=== PATIENT | female | born 1985 | race Caucasian/White ===

== ENCOUNTER → 2016-08-14 | Outpatient (CLI) | payer BC ==
[~2016-08-14] MED LIST: PRENTAB26 PO
[2016-08-14 13:49] LABS: URINE APPEARANCE CLEAR (CLEAR); URINE BILIRUBIN NEG (NEG); URINE COLOR YELLOW; URINE NITRITE NEG (NEG); URINE SPECIFIC GRAVITY 1.013 (1.000-1.030); UROBILINOGEN NEG (NEG)
[2016-08-14 13:54] LABS: MANUAL MICROSCOPIC REQUIRED? NO; REVIEW REQ? NO
== END | disposition home or self-care (01) ==
LOC: C.LABSPEC 13:22
PROVIDERS: ATTEND Obstetrics & Gynecology
DX: Z34.81 Encounter for supervision of other normal pregnancy, first trimester (principal)

== ENCOUNTER → 2016-08-22 | Outpatient (CLI) | payer BC ==
[2016-08-22 16:31] LABS: BASO % 0.2 %; BASO ABS # 0.02 K/uL (0-0.2); COMPLETE YES; EOS % 1.3 %; HEMATOCRIT 35.5 % (37-47); IG% 0.2 %; LYMPH % 30.5 %; LYMPH ABS # 2.65 K/uL (1.2-3.4); MEAN CELL VOLUME 87.9 fL (80-100); MEAN CORPUSCULAR HEMOGLOBIN 31.4 pg (25-34); MEAN CORPUSCULAR HGB CONC 35.8 g/dl (32-36); MEAN PLATELET VOLUME 9.2 fL (7.4-10.4); MONO % 7.6 %; NEUT % 60.2 %; PLATELET COUNT 232 K/uL (130-400); RED BLOOD COUNT 4.04 M/uL (4.2-5.4); WHITE BLOOD COUNT 8.68 K/uL (4.8-10.8)
[2016-08-25 15:33] LABS: CHLAMYDIA TRACH RNA*** NOT DETECTED (NOT DETECTED); GC (NEIS GONORRHOEAE)RNA** NOT DETECTED (NOT DETECTED)
== END | disposition home or self-care (01) ==
LOC: C.LAB1850 15:54
PROVIDERS: ATTEND Obstetrics & Gynecology
DX: Z34.81 Encounter for supervision of other normal pregnancy, first trimester (principal)

== ENCOUNTER → 2016-08-22 | Outpatient (CLI) | payer BC | END | disposition home or self-care (01) | LOC: C.PAPS 10:36 | PROVIDERS: ATTEND Obstetrics & Gynecology | DX: Z12.4 Encounter for screening for malignant neoplasm of cervix (principal) ==

== ENCOUNTER → 2016-10-02 | Outpatient (CLI) | payer BC ==
[2016-10-02 18:19] LABS: GTGD 50 Grams
== END | disposition home or self-care (01) ==
LOC: C.LAB1850 16:10
PROVIDERS: ATTEND Obstetrics & Gynecology
DX: Z34.82 Encounter for supervision of other normal pregnancy, second trimester (principal)

== ENCOUNTER → 2016-10-06 | Outpatient (CLI) | payer BC | END | disposition home or self-care (01) | LOC: C.LAB1850 08:25 | PROVIDERS: ATTEND Obstetrics & Gynecology | DX: O28.1 Abnormal biochemical finding on antenatal screening of mother (principal); Z3A.00 Weeks of gestation of pregnancy not specified ==

== ENCOUNTER → 2016-12-25 | Outpatient (CLI) | payer BC ==
[2016-12-25 11:08] LABS: URINE APPEARANCE CLOUDY (CLEAR); URINE BILIRUBIN NEG (NEG); URINE COLOR YELLOW; URINE EPITHELIAL CELL AUTO >30 /lpf (0-5); URINE NITRITE NEG (NEG); URINE SPECIFIC GRAVITY 1.009 (1.000-1.030); UROBILINOGEN NEG (NEG)
[2016-12-25 11:16] LABS: MANUAL MICROSCOPIC REQUIRED? NO; REVIEW REQ? NO
[2016-12-25 12:13] LABS: GTGD 50 Grams
[2016-12-25 12:23] LABS: HEMATOCRIT 36.8 % (37-47)
== END | disposition home or self-care (01) ==
LOC: C.LAB1850 09:20
PROVIDERS: ATTEND Obstetrics & Gynecology
DX: Z34.82 Encounter for supervision of other normal pregnancy, second trimester (principal)

== ENCOUNTER → 2017-01-06 | Outpatient (CLI) | payer BC | END | disposition home or self-care (01) | LOC: C.LAB 07:19 | PROVIDERS: ATTEND Obstetrics & Gynecology | DX: O28.1 Abnormal biochemical finding on antenatal screening of mother (principal); Z3A.00 Weeks of gestation of pregnancy not specified ==

== ENCOUNTER → 2017-01-23 | Outpatient (CLI) | payer BC ==
[2017-01-23 10:06] LABS: CHOLESTEROL/HDL RATIO 2.6
== END | disposition home or self-care (01) ==
LOC: C.LAB 08:37
PROVIDERS: ATTEND Physician Assistant
DX: Z13.1 Encounter for screening for diabetes mellitus (principal); Z13.6 Encounter for screening for cardiovascular disorders

== ENCOUNTER → 2017-02-19 | Outpatient (CLI) | payer BC | END | disposition home or self-care (01) | LOC: C.LABSPEC 17:29 | PROVIDERS: ATTEND Obstetrics & Gynecology | DX: Z34.83 Encounter for supervision of other normal pregnancy, third trimester (principal) ==

== ENCOUNTER 2017-03-10 03:39 | Inpatient (IN) | payer BC ==
[~2017-03-10] VITALS: Ht 170.2 cm; Wt 75.0 kg
[2017-03-10] MEDS ORDERED: LACTATED RINGER'S 1000ML 1,000 ML IV PRN (04:07)
[2017-03-10] MEDS ORDERED: LACTATED RINGER'S 1000ML 1,000 ML IV SCH ×2 (04:07→05:49)
[2017-03-10] MEDS ORDERED: BUPIVACAINE 0.25% 30 ML VIAL ONE (04:12)
[2017-03-10] MEDS ORDERED: FENTANYL 2MCG/ML ROPIV 1.25MG/ML 100ML BAG EPI ONE (04:12)
[2017-03-10] MEDS ORDERED: EpHEDrine SULFATE INJ 50 MG/ML AMP ONE (04:12)
[2017-03-10] MEDS ORDERED: FENTANYL CITRATE INJ 50 MCG/1 ML 2 ML VIAL ONE (04:13)
[2017-03-10 04:35] LABS: HEMATOCRIT 38.8 % (37-47); MEAN CELL VOLUME 89.6 fL (80-100); MEAN CORPUSCULAR HEMOGLOBIN 31.2 pg (25-34); MEAN CORPUSCULAR HGB CONC 34.8 g/dl (32-36); MEAN PLATELET VOLUME 9.8 fL (7.4-10.4); PLATELET COUNT 220 K/uL (130-400); RED BLOOD COUNT 4.33 M/uL (4.2-5.4); WHITE BLOOD COUNT 13.55 K/uL (4.8-10.8)
[2017-03-10] MEDS ORDERED: NALOXONE HCL INJ 1 MG in SODIUM CHLORIDE 0.9% 1000ML 1,000 ML IV PRN ×4 (05:07)
[2017-03-10] MEDS ORDERED: LACTATED RINGER'S 1000ML 500 ML IV PRN (05:07)
[2017-03-10] MEDS ORDERED: METOCLOPRAMIDE HCL INJ 20 MG in SODIUM CHLORIDE 0.9% 50ML 50 ML IV PRN (05:15)
[2017-03-10] MEDS ORDERED: ONDANSETRON INJ 2 MG/ML 2 ML VIAL IV PRN (05:15)
[2017-03-10] MEDS ORDERED: NALOXONE HCL INJ 0.4 MG/1 ML VIAL/CARP IV PRN (05:15)
[2017-03-10] MEDS ORDERED: DiphenhydrAMINE HCL 50 MG/ML VIAL IV PRN (05:15)
[2017-03-10] MEDS ORDERED: EpHEDrine SULFATE INJ 50 MG/ML AMP IV PRN (05:15)
[2017-03-10] MEDS ORDERED: NALBUPHINE HCL INJ 10 MG/ML AMP IV PRN (05:15)
[2017-03-10] MEDS ORDERED: PROMETHAZINE HCL INJ 25 MG in SODIUM CHLORIDE 0.9% 50ML 50 ML IV PRN (05:15)
[2017-03-10] MEDS ORDERED: FENTANYL 2MCG/ML ROPIV 1.25MG/ML 100ML BAG EPI PRN (05:15)
[2017-03-10] MEDS ORDERED: OXYCODONE/ACETAMINOPHEN 5-325 TAB PO PRN (06:00)
[2017-03-10] MEDS ORDERED: SUPERCREAM 0.870 % 15GM JAR EXT PRN (06:00)
[2017-03-10] MEDS ORDERED: OXYTOCIN INJ 10 UNITS/ML VIAL IM ONE (06:00)
[2017-03-10] MEDS ORDERED: BENZOCAINE 20% AER SPR 82.5 GM CAN EXT PRN (06:00)
[2017-03-10] MEDS ORDERED: LANOLIN OINT EXT PRN ×2 (06:00)
[2017-03-10] MEDS ORDERED: HYDROCORTISONE ACETATE 25 MG SUPP PR PRN (06:00)
[2017-03-10] MEDS ORDERED: ACETAMINOPHEN 325 MG TAB PO PRN (06:00)
[2017-03-10] MEDS: OXYTOCIN 30 UNITS/500ML NSS IV ONE ×2 (06:21→06:24)
[2017-03-10 06:28] VITALS: Ht 170.2 cm; Wt 75.0 kg
--- NOTE | 2017-03-10 07:18 | DELIVERY SUMMARY ---
DATE OF OPERATION: 03/10/2017 ADMISSION AND VAGINAL DELIVERY NOTE COURSE OF CARE: Hilda is a 31-year-old -0-0-1 who contacted the on-call physician complaining of contractions and was advised to come to the hospital. On arrival to the hospital she was greeted and admitted by our nursing staff and found to be completely dilated. I was called to the room for delivery. As I was on the way to the room there were noted to be category 1 heart tones. The 's head continued to crown despite being held by one of the nurses. As I was gowning and gloving the patient gave a push and the head and shoulders and body of the delivered en-caul. The was placed on the maternal abdomen. The membrane was cleared away and the infant was vigorous and crying immediately after delivery. The cord was doubly clamped by myself and then cut by the father of the baby. The cord blood was collected and the placenta then delivered spontaneously with an intact 3-vessel cor. The vagina, cervix, and peroneum were examined and found to be free of any lacerations requiring repair. Bleeding was minimal and the fundus was firm. EBL for this delivery is estimated at 200 cc an absolute maximum. After delivery I returned to the nursing station where I was able to review the patient's record. She has an allergy to penicillin and currently taking prenatals and clindamycin gel. PAST MEDICAL HISTORY: Her past medical history is notable for chickenpox in childhood. PAST SURGICAL HISTORY: Her past surgical history includes wisdom teeth and shoulder surgery in 2006. OBSTETRICAL HISTORY: Her past obstetrical history is a prior normal spontaneous vaginal delivery in 2014 of a 6 pound 12 ounce . SOCIAL HISTORY: , , negative x3. REVIEW OF LABS: Blood type of A positive, Rubella immune, RPR negative, HIV negative, gonorrhea chlamydia negative, anatomy complete and normal and group B strep was negative. ASSESSMENT AND PLAN: 31-year-old now status post normal spontaneous vaginal delivery which was uncomplicated of a vigorous infant. Both mother and tolerated delivery very well. No repair of any lacerations was required and currently both mom and baby are in stable condition in the delivery room. I attest to the content of the Intraoperative Record and any orders documented therein. Any exception s are noted below.
--- NOTE | 2017-03-10 07:52 | Anesthesia Procedure Note ---
Anesthesia Epidural Removal Nt Date & Time Mar 10, 2017 at 07:52 Vital Signs Pain Intensity: 2.0 Notes Mental Status: alert / awake / arousable, participated in evaluation Nausea / Vomiting: adequately controlled Pain: adequately controlled Airway Patency, RR, SpO2: stable & adequate BP & HR: stable & adequate Hydration State: stable & adequate Neuraxial Anesthesia: was administered Anesthetic Complications: no major complications apparent, pt satisfied with anesthetic care Epidural: removed without complications, with tip intact
[2017-03-10] MEDS: DOCUSATE SODIUM 100 MG CAP PO SCH ×2 (08:26→20:12)
[2017-03-10] MEDS: PRENATAL VITAMIN TAB PO SCH (08:26)
[2017-03-10] MEDS: FERROUS SULFATE 325 MG TAB PO SCH (08:26)
[2017-03-10 09:30] VITALS: BP 119/69; PULSE 67; TEMP 37.3
[2017-03-10 11:50] VITALS: BP 114/72; PULSE 68; TEMP 36.9; O2SAT 97
[2017-03-10 16:40] VITALS: BP 143/91; PULSE 64; TEMP 36.9; O2SAT 100
[2017-03-10 18:48] VITALS: BP 116/75; PULSE 73; TEMP 36.9
[2017-03-10 23:20] VITALS: BP 116/76; PULSE 73; TEMP 36.5; O2SAT 98
[2017-03-11 04:00] VITALS: BP 105/67; PULSE 64; TEMP 36.6; O2SAT 98
--- NOTE | 2017-03-11 07:41 | Progress Note ---
Subjective Mar 11, 2017. Subjective conversation w/ patient, physical exam, chart review, lab review Ambulation: ambulating normally Voiding: no voiding problems Diet Tolerance: Regular Diet Lochia: Moderate Feeding Type: Breast Feeding Objective Vital Signs Date Time Temp Pulse Resp B/P (MAP) Pulse Ox O2 Delivery O2 Flow Rate FiO2 03/11/17 04:00 36.6 64 18 105/67 (80) 98 Room Air 03/10/17 23:20 36.5 73 18 116/76 (89) 98 Room Air 03/10/17 23:20 98 Room Air 03/10/17 18:48 36.9 73 18 116/75 (89) Room Air 03/10/17 16:40 36.9 64 18 143/91 (108) 100 Room Air 03/10/17 16:40 100 Room Air 03/10/17 11:50 36.9 68 18 114/72 (86) 97 Room Air 03/10/17 09:30 Room Air 03/10/17 09:30 37.3 67 16 119/69 (86) Room Air Physical Exam General Appearance: WELL-APPEARING Respiratory/Chest: lungs clear Abdomen: non tender Extremities: non-tender Laboratory Results Last 24 Hours Test 03/11/17 04:44 Assessment and Plan Post- Day#: 1 Continue Routine Care: ccc
[2017-03-11 08:00] VITALS: BP 123/84; PULSE 71; TEMP 36.6
[2017-03-11] MEDS: FERROUS SULFATE 325 MG TAB PO SCH (09:02)
[2017-03-11] MEDS: DOCUSATE SODIUM 100 MG CAP PO SCH ×2 (09:02→21:16)
[2017-03-11] MEDS: IBUPROFEN 600 MG TAB PO PRN (09:02)
[2017-03-11] MEDS: PRENATAL VITAMIN TAB PO SCH (09:02)
[2017-03-11 11:25] VITALS: BP 115/77; PULSE 70; TEMP 36.4
[2017-03-11 15:40] VITALS: BP 115/74; PULSE 73; TEMP 36.6
--- NOTE | 2017-03-11 20:17 | Discharge Instructions ---
Discharge Instructions Date of Service Mar 11, 2017. Admission Reason for Admission: LABOR Discharge Discharge Diagnosis / Problem: recovery from normal delivery Discharge Goals Goal(s): Routine recovery after delivery Medications Continue Dispensed Medications: supercream, dermaplast, tucks, lansinoh Activity Recommendations Activity Limitations: per Instructions/Follow-up section . Instructions / Follow-Up Instructions / Follow-Up ACTIVITY RECOMMENDATIONS: * Gradual return to full activity over the next 2-3 weeks. * No lifting - nothing heavier than baby over the next 2-3 weeks. * Do not engage in vigorous exercise, sexual activity or sports until cleared by your physician. * Do not drive or operate any motorized equipment until cleared by your physician. * You may shower/bathe daily. MEDICATIONS: For discomfort or pain, you may use Acetaminophen (Tylenol), Ibuprofen (Advil), or Naproxen (Aleve) following the package directions. For constipation you may use Colace following the package directions. BREAST CARE: If you are not breast feeding: * Wear a supportive bra 24 hours a day for one to two weeks. * Avoid stimulating your breasts and nipples as much as possible during the first few weeks after delivery. * When taking a shower, have the warm water hit your back, not breasts. * When your breasts feel full, apply ice packs. Usually three to four times a day helps ease the discomfort. * Take a mild pain medication (Tylenol / Motrin) when you are uncomfortable. If breast feeding: * Use breast milk to lubricate nipples. Lansinoh cream may be used for sore nipples. You do not need to remove cream prior to breast feeding. If using a different brand of cream, check the label for directions regarding removal of cream prior to nursing. * Wear a supportive bra. * If having problems with breasts or breast feeding, call a access consultant or your health care provider. EPISIOTOMY CARE: After delivery, if you have an episiotomy (stitches), the following steps will ease discomfort and aid healing. * For the first 24 hours after delivery, place ice packs next to your episiotomy to help reduce swelling. * After the first 24 hour-period, sitz baths, either portable or in the tub, are suggested. A shower with a shower arm sprayed over the episiotomy may be comforting. * [place] care should be done after each voiding and bowel movement. Squirt warm water from a plastic bottle over the perineum (region of the body between the anus and urinary opening) and pat dry. * Use Dermoplast to ease discomfort. Shake container. [place]ander directly over the episiotomy. Place a Tucks on a clean sanitary pad next to your episiotomy. SPECIAL CARE INSTRUCTIONS: When you are discharged from the hospital, it is important for you to follow the instructions listed below: * During the first week at home, you should be able to care for yourself and your baby. In addition, the usual light household activities are encouraged. * Limit your activities to the way you feel. Do not try to clean the house or move furniture. Be sensible. * If you actively engage in sports and have done so up until the time of your delivery, you may resume these activities as soon as you feel able. This may take up to one month or even longer. Use good judgment. * Continue to take your vitamins for at least six weeks after the of your baby. * Your diet need not be limited unless you were on a special diet before your delivery. Breast-feeding mothers need around 2500 calories per day and at least 64-80 ounces of fluid per day (8 to 10 glasses). * You should eat foods from the four major food groups. Crash diets or fad diets are to be avoided. Eating lean meats, fresh fruits and vegetables, low-fat dairy products, high fiber foods and a regular exercise program, will help you get back to your pre- weight without putting your health at risk. * Constipation is sometimes a problem after delivery. Take a mild laxative as needed. If breast feeding, Milk of Magnesia is acceptable to use. You may use a suppository or Fleets enema if no episiotomy. * A daily shower or tub bath is suggested. Be sure to thoroughly and gently dry the perineum. * A bloody vaginal discharge will usually continue until around four weeks post . A small amount of bleeding may continue for as long as six weeks. Vaginal discharge changes from the bright red bleeding after delivery to pink then brownish and finally yellowish-pink before becoming white and disappearing. * Bleeding may increase with activity. Your first period may come in 4-8 weeks. If you are breast feeding, your period may be delayed even longer. * Hanska (sex) can begin whenever both you and your partner feel comfortable and do not have any form of genital infection. It is recommended that you wait at least six weeks for internal and external healing to occur. If you have questions, please talk to your health care practitioner. A condom should be used to prevent infection and . * Foreplay, gentle intercourse and lubrication is very important the first several times to prevent pain. A water-based lubricant such as K-Y jelly or Astroglide may be used. * If you have RH negative blood and your baby is RH positive, you will receive RHOGAM by injection prior to discharge. The nurse will give you a card to keep with you that has the date and place that you received RHOGAM after delivery. * During your care, you had a Rubella screen done to check for the presence of rubella antibodies in your blood. If your test was negative, you will receive a Rubella vaccine prior to discharge. This vaccine may cause a fever, soreness at the injection site and flu-like symptoms. If these symptoms persist, notify your health care practitioner. is not advised for one month after a Rubella vaccine. * Verbalizes understanding of car seat law as reviewed with patient nursing. * Car Seat hand-out given and reviewed with patient by nursing. * Shaken baby information reviewed with patient by nursing. Call you doctor if: * Heavy bleeding (saturating several pads an hour) or passing clots the size of your fist. * A fever >101 degrees F (38.3 degrees C) on two occasions four hours apart and /or chills. * Unusual pain in the pelvic or vaginal areas. * "Baby Blues" lasting longer than two weeks. If you have any questions or concerns, call your health care practitioner at . FOLLOW UP VISIT: * Please call the office at to schedule a 6 week examination. It is important you keep this appointment. It is important for you to make arrangements for either yearly or twice yearly check-ups thereafter. Current Hospital Diet Patient's current hospital diet: Regular OB Diet Discharge Diet Recommended Diet: Regular OB Diet Pending Studies Studies pending at discharge: no Laboratory Results Lipid Panel Test 01/23/17 08:48 Range/Units Triglycerides Level 132 0-150 mg/dl Cholesterol Level 177 0-200 mg/dl HDL Cholesterol 67 mg/dl Cholesterol/HDL Ratio 2.6 LDL Cholesterol, Calculated 84 mg/dl Medical Emergencies . Who to Call and When: Medical Emergencies: If at any time you feel your situation is an emergency, please call 911 immediately. . Non-Emergent Contact Non-Emergency issues call your: Content Analyst . . "Provider Documentation" section prepared by Adelina Cruz. . VTE Core Measure Inpt VTE Proph given/why not?: Treatment not indicated
[2017-03-11 23:55] VITALS: BP 114/73; PULSE 54; PULSE 56; TEMP 36.6; O2SAT 99
--- NOTE | 2017-03-12 05:58 | Progress Note ---
Subjective Mar 12, 2017. Subjective conversation w/ patient, physical exam Ambulation: ambulating normally Voiding: no voiding problems Passing Gas: Yes Diet Tolerance: Regular Diet Lochia: Small Feeding Type: Breast Feeding Review of Systems Constitutional: No fever, No chills, No sweats, No weight loss, No weakness, No fatigue, No problem reported Breast: No see HPI, No breast lump, No change in shape, No nipple discharge, No breast pain, No problem reported Abdomen: No pain, No nausea, No vomiting, No diarrhea, No constipation, No GI bleeding, No problem reported Female : No see HPI, No dysuria, No urinary frequency, No hematuria, No incontinence, No abnormal vaginal bleeding, No vaginal discharge, No problem reported Objective Vital Signs Date Time Temp Pulse Resp B/P (MAP) Pulse Ox O2 Delivery O2 Flow Rate FiO2 03/11/17 23:55 36.6 54 18 114/73 (87) 99 Room Air 56 03/11/17 23:55 99 Room Air 03/11/17 15:40 Room Air 03/11/17 15:40 36.6 73 18 115/74 (88) Room Air 03/11/17 11:25 36.4 70 18 115/77 (90) Room Air 03/11/17 08:00 36.6 71 18 123/84 (97) Room Air 03/11/17 08:00 Room Air Physical Exam General Appearance: WELL-APPEARING, NO APPARENT DISTRESS Abdomen: non tender, soft Fundus: Firm, Non-Tender, Relation to Umbilicus (2 below U) Extremities: no calf tenderness Laboratory Results Last 24 Hours Test 03/11/17 07:49 Hemoglobin 12.5 g/dL Hematocrit 37.0 % Assessment and Plan Post- Day#: 2 Continue Routine Care: stable progress discharge to home follow up in 6 weeks or PRN
[2017-03-12 07:33] VITALS: BP 114/73; PULSE 62; TEMP 36.8; O2SAT 99
[2017-03-12] MEDS: DOCUSATE SODIUM 100 MG CAP PO SCH (08:30)
[2017-03-12] MEDS: FERROUS SULFATE 325 MG TAB PO SCH (08:30)
[2017-03-12] MEDS: IBUPROFEN 600 MG TAB PO PRN (08:30)
[2017-03-12] MEDS: PRENATAL VITAMIN TAB PO SCH (08:30)
[2017-03-12 10:05] VITALS: BP_DIAS 73; PULSE 62; TEMP 36.8
== END 2017-03-12 10:59 | disposition home or self-care (01) | DRG 775 ==
LOC: C.OPB 03:39 → C.LD 03:39 → C.OPB 04:09 → C.MS4N 09:36
PROVIDERS: ADMIT Obstetrics & Gynecology; ATTEND Obstetrics & Gynecology
PROC: 10E0XZZ Delivery of Products of Conception, External Approach (ICD-10-PCS; principal; 2017-03-10)
DX: O80 Encounter for full-term uncomplicated delivery (principal); Z37.0 Single live birth; Z3A.38 38 weeks gestation of pregnancy

== ENCOUNTER → 2017-06-02 | Outpatient (CLI) | payer BC ==
[2017-06-02 13:52] LABS: PREG INTERNAL NEGATIVE QC NEG CLEAR BACKGROUND; PREG INTERNAL POSITIVE QC POS CONTROL LINE
[2017-06-05 03:07] LABS: CHLAMYDIA TRACH RNA*** NOT DETECTED (NOT DETECTED); GC (NEIS GONORRHOEAE)RNA** NOT DETECTED (NOT DETECTED)
== END | disposition home or self-care (01) ==
LOC: C.LAB1850 12:54
PROVIDERS: ATTEND Physician Assistant
DX: Z30.430 Encounter for insertion of intrauterine contraceptive device (principal); Z30.9 Encounter for contraceptive management, unspecified

== ENCOUNTER → 2018-01-26 | Outpatient (CLI) | payer BC | END | disposition home or self-care (01) | LOC: C.LAB 10:32 | PROVIDERS: ATTEND Family Medicine | DX: Z78.9 Other specified health status (principal) ==